=== PATIENT | male | born 1945 | race Hispanic/Latino ===

== ENCOUNTER → 2017-10-16 | Day surgery (SDC) | payer OTHER ==
[~2017-10-16] MED LIST: ASPIR 8181 MG PO; CALCIUM CARBON500 MG PO; FENTANYL CITRATE/PF 100MCG/2 ML INJ ONE; HYDROCHLOROTHIA25 MG PO; LIDOCAINE HCL 2% LOCAL INJ 5 ML SDV VIAL INJ ONE; LISINOPRIL10 MG PO; METHADONE HCL5 MG PO; MIDAZOLAM HCL 2 MG/2 ML VIAL ONE; PROPOFOL IV EMULSION 10 MG/ML 50 ML VIAL ONE
--- OUTSIDE RECORDS SUMMARY | 2017-10-16 09:09 | XMS REPORT ---
Author Organization Unknown Address [address] [place] [address] Phone [phone] Care Team Providers Care Key Account Executive Name Role Phone BRIANNA KAUFMAN MD 107 [phone] Allergies Code Code System Name Reaction Severity Status Onset NKDA Medications Name Status Start Date Stop Date aspirin 81 mg chewable tablet Chew 1 tablet every day by oral route. Active Not available baclofen 10 mg tablet Take 1 tablet every day by oral route for 90 days. Completed 07/16/2017 erythromycin 5 mg/gram (0.5 %) eye ointment APPLY 1 CM RIBBON on upper eyelid 3 TIMES PER DAY x 1 week Completed 04/05 ferrous sulfate 325 mg (65 mg iron) tablet Take 1 tablet every day by oral route for 90 days. Completed 07/16/2017 hydrochlorothiazide 25 mg tablet Take 1 tablet every day by oral route for 90 days. Active Not available Kenalog 40 mg/mL suspension for injection Take 1 mL by injection route. Active Not available lisinopril 40 mg tablet Take 1 tablet every day by oral route for 90 days. Active Not available meloxicam 15 mg tablet Take 1 tablet every day by oral route for 30 days. Active Not available meloxicam 7.5 mg tablet Take 1 tablet every day by oral route for 30 days. Completed 05/22/2017 rosuvastatin 5 mg tablet Take 1 tablet every day by oral route. 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 [address] [place] [address] (Work Place) 01/12/2016 Ultrasound, Abdominal Aorta Information not available 05/22/2017 Electrocardiogram [facility] [address] [facility] [address] [place] [id number] (Work Place) 09/25/2017 XR, Lumbar Spine [facility] [address] [place] [address] (Work Place) Notes: 11/17/2015: [id number]/01/2006 TRANSURETHRAL RESECTION OF PROSTATE-06/23/2014 Lab Results Date Name Specimen Result Interpretation Description Value Range Status Address 07/16/2017 Lipid Panel, Serum Normal Cholesterol, Total 164 mg/dL <200 mg/dL Final [facility]: [address] [place] [address] Normal HDL Cholesterol 78 mg/dL >40 mg/dL Final [facility]: [address] [place] [address] Normal Triglycerides 66 mg/dL <150 mg/dL Final [facility]: [address] [place] [address] Normal LDL-cholesterol 71 mg/dL (calc) Final [facility]: [address] [place] [address] Normal Chol/hdlc Ratio 2.1 (calc) <5.0 (calc) Final [facility]: [address] [place] [address] Normal Non HDL Cholesterol 86 mg/dL (calc) <130 mg/dL (calc) Final [facility]: [facility] [address] 07/16/2017 Hepatitis C Virus RNA, Quant, PCR, Serum or Plasma ABNORMAL Hepatitis C Antibody reactive non-reactive Final [facility]: [address] [place] [address] High Signal to Cut-off 32.30 <1.00 Final [facility]: [address] [place] [address] High HCV RNA, Quantitative Real Time PCR [id number] IU/mL not detected IU/mL Final [facility]: [address] [place] [address] High HCV RNA, Quantitative Real Time PCR 6.62 log IU/mL not detected log IU/mL Final [facility]: [address] [place] [address] Comment Final [facility]: [address] 07/16/2017 CBC W/ Auto Diff Normal White Blood Cell Count 6.9 thousand/uL 3.8-10.8 thousand/uL Final [facility]: [address] Low Red Blood Cell Count 3.94 million/uL 4.20-5.80 million/uL Final [facility]: [address] Low Hemoglobin 11.6 g/dL 13.2-17.1 g/dL Final [facility]: [address] Low Hematocrit 33.4 % 38.5-50.0 % Final [facility]: [address] Normal Mcv 84.8 fL 80.0-100.0 fL Final [facility]: [address] Normal Mch 29.4 pg 27.0-33.0 pg Final [facility]: [address] Normal Mchc 34.7 g/dL 32.0-36.0 g/dL Final [facility]: [address] Normal Rdw 13.3 % 11.0-15.0 % Final [facility]: [address] Low Platelet Count 138 thousand/uL 140-400 thousand/uL Final [facility]: [address] Normal Mpv 10.7 fL 7.5-12.5 fL Final [facility]: [address] Normal Absolute Neutrophils 4437 cells/uL 0980-6188 cells/uL Final [facility]: [address] Normal Absolute Lymphocytes 1697 cells/uL 850-3900 cells/uL Final [facility]: [address] Normal Absolute Monocytes 566 cells/uL 200-950 cells/uL Final [facility]: [address] [place] Normal Absolute Eosinophils 159 cells/uL 15-500 cells/uL Final [facility]: [address] [place] Normal Absolute Basophils 41 cells/uL 0-200 cells/uL Final [facility]: [address] [place] Normal Neutrophils 64.3 % Final [facility]: [address] [place] Normal Lymphocytes 24.6 % Final [facility]: [address], [place] Normal Monocytes 8.2 % Final [facility]: [address], [place] Normal Eosinophils 2.3 % Final [facility]: [address] [place] Normal Basophils 0.6 % Final [facility]: [address] [place] 07/16/2017 CMP, Serum or Plasma Normal Glucose 75 mg/dL 65-99 mg/ dL Final [facility]: [address] [facility] Normal Urea Nitrogen (BUN) 20 mg/dL 7-25 mg/dL Final [facility]: [address] [facility] Normal Creatinine 0.78 mg/dL 0.70-1.18 mg/dL Final [facility]: [address] [place] [address] Normal eGFR Non-afr. Argentine 91 mL/min/1.73m2 > or=60 mL/min/ 1.73m2 Final [facility]: [address] [facility] Normal eGFR 105 mL/min/1.73m2 > or=60 mL/min/ 1.73m2 Final [facility]: [address] [facility] BUN/creatinine Ratio not applicable (calc) 6-22 (calc) Final [facility]: [address] [facility] Normal Sodium 135 mmol/L 135-146 mmol/L Final [facility]: [address] [facility] Normal Potassium 4.2 mmol/L 3.5-5.3 mmol/L Final [facility]: [address] [facility] Normal Chloride 101 mmol/L 98-110 mmol/L Final [facility]: [address] [facility] Normal Carbon Dioxide 28 mmol/L 20-31 mmol/L Final [facility]: [address] [facility] Normal Calcium 8.9 mg/dL 8.6-10.3 mg/dL Final [facility]: [address] [facility] Normal Protein, Total 7.4 g/dL 6.1-8.1 g/dL Final [facility]: [address] [place] Low Albumin 3.5 g/dL 3.6-5.1 g/dL Final [facility]: [address] [place] High Globulin 3.9 g/dL (calc) 1.9-3.7 g/dL (calc) Final [facility]: [address] [place] Low Albumin/globulin Ratio 0.9 (calc) 1.0-2.5 (calc) Final [facility]: [address] [facility] Normal Bilirubin, Total 0.8 mg/dL 0.2-1.2 mg/dL Final [facility]: [address] [place] High Alkaline Phosphatase 166 U/L 40-115 U/L Final [facility]: [address] [place] High Ast 83 U/L 10-35 U/L Final [facility]: [address] [place] High Alt 80 U/L 9-46 U/L Final [facility]: [address] [facility] 05/14/2017 Fecal Occult Blood, Stool ABNORMAL Fecal Globin by Immunochemistry see note Final [facility]: [address] [facility] 02/20/2017 CBC W/ Auto Diff Normal White Blood Cell Count 5.4 thousand/uL 3.8-10.8 thousand/uL Final [facility]: [address] [place] Low Red Blood Cell Count 3.68 million/uL 4.20-5.80 million/uL Final [facility]: [address] [place] Low Hemoglobin 11.0 g/dL 13.2-17.1 g/dL Final [facility]: [address] [place] Low Hematocrit 32.3 % 38.5-50.0 % Final [facility]: [address] [facility] Normal Mcv 87.8 fL 80.0-100.0 fL Final [facility]: [address] [facility] Normal Mch 29.9 pg 27.0-33.0 pg Final [facility]: [address] [facility] Normal Mchc 34.1 g/dL 32.0-36.0 g/dL Final [facility]: [address] White Normal Rdw 13.1 % 11.0-15.0 % Final [facility]: [address] [place] Low Platelet Count 104 thousand/uL 140-400 thousand/uL Final [facility]: [address] [place] Normal Mpv 10.0 fL 7.5-12.5 fL Final [facility]: [address] [place] Normal Absolute Neutrophils 3742 cells/uL 2677-5391 cells/uL Final [facility]: [address] [place] Normal Absolute Lymphocytes 1274 cells/uL 850-3900 cells/uL Final [facility]: [address] [place] Normal Absolute Monocytes 329 cells/uL 200-950 cells/uL Final [facility]: [address] [place] Normal Absolute Eosinophils 32 cells/uL 15-500 cells/uL Final [facility]: [address] [place] Normal Absolute Basophils 22 cells/uL 0-200 cells/uL Final [facility]: [address] [place] Normal Neutrophils 69.3 % Final [facility]: [address] [place] Normal Lymphocytes 23.6 % Final [facility]: [address] [place] Normal Monocytes 6.1 % Final [facility]: [address] [place] Normal Eosinophils 0.6 % Final [facility]: [address] [place] Normal Basophils 0.4 % Final [facility]: [address] [place] 02/20/2017 Lipid Panel, Serum Normal Cholesterol, Total 140 mg/dL <200 mg/dL Final [facility]: [address] [place] Normal HDL Cholesterol 70 mg/dL >40 mg/dL Final [facility]: [address] [place] Normal Triglycerides 58 mg/dL <150 mg/dL Final [facility]: [address] [facility] Normal LDL-cholesterol 57 mg/dL (calc) Final [facility]: [address] [facility] Normal Chol/hdlc Ratio 2.0 (calc) <5.0 (calc) Final [facility]: [address] Normal Non HDL Cholesterol 70 mg/dL (calc) <130 mg/dL (calc) Final [facility]: [address] [facility] 02/20/2017 CMP, Serum or Plasma Normal Glucose 72 mg/dL 65-99 mg/ dL Final [facility]: [address] javier [address] Normal Urea Nitrogen (BUN) 18 mg/dL 7-25 mg/dL Final [facility]: [address] Normal Creatinine 0.88 mg/dL 0.70-1.18 mg/dL Final [facility]: [address] Normal eGFR Non-afr. [place] 86 mL/min/1.73m2 > or=60 mL/min/ 1.73m2 Final [facility]: [address] javier [address] Normal eGFR 100 mL/min/1.73m2 > or=60 mL/min/ 1.73m2 Final [facility]: [address] BUN/creatinine Ratio not applicable (calc) 6-22 (calc) Final [facility]: [address] Normal Sodium 136 mmol/L 135-146 mmol/L Final [facility]: [address] Normal Potassium 4.3 mmol/L 3.5-5.3 mmol/L Final [facility]: [address] Normal Chloride 103 mmol/L 98-110 mmol/L Final [facility]: [address] Normal Carbon Dioxide 30 mmol/L 20-31 mmol/L Final [facility]: [address] Normal Calcium 8.8 mg/dL 8.6-10.3 mg/dL Final [facility]: [address] Normal Protein, Total 6.9 g/dL 6.1-8.1 g/dL Final [facility]: [address] Low Albumin 3.4 g/dL 3.6-5.1 g/dL Final [facility]: [address] Normal Globulin 3.5 g/dL (calc) 1.9-3.7 g/dL (calc) Final [facility]: [address] Normal Albumin/globulin Ratio 1.0 (calc) 1.0-2.5 (calc) Final [facility]: [address] Normal Bilirubin, Total 0.9 mg/dL 0.2-1.2 mg/dL Final [facility]: [address] [place] [address], [place] Normal Alkaline Phosphatase 114 U/L 40-115 U/L Final [facility]: [address] High Ast 56 U/L 10-35 U/L Final [facility]: [address] [place] [address], [place] High Alt 50 U/L 9-46 U/L Final [facility]: [address] jav[address] 07/27/2016 Lipid Panel, Serum Normal Cholesterol, Total 168 mg/dL 125-200 mg/dL Final [facility]: [address], [place] Normal HDL Cholesterol 79 mg/dL > or=40 mg/dL Final [facility]: [address] [facility], [place] Normal Triglycerides 79 mg/dL <150 mg/dL Final [facility]: [address], [place] Normal LDL-cholesterol 73 mg/dL (calc) <130 mg/dL (calc) Final [facility]: [address], [place] Normal Chol/hdlc Ratio 2.1 (calc) < or=5.0 (calc) Final [facility]: [address], [place] Normal Non HDL Cholesterol 89 mg/dL (calc) Final [facility]: [address], [place] 07/27/2016 CMP, Serum or Plasma Normal Glucose 94 mg/dL 65-99 mg/ dL Final [facility]: [address], [place] Normal Urea Nitrogen (BUN) 12 mg/dL 7-25 mg/dL Final [facility]: [address], [place] Normal Creatinine 0.85 mg/dL 0.70-1.18 mg/dL Final [facility]: [address], [place] Normal eGFR Non-afr. Argentine 88 mL/min/1.73m2 > or=60 mL/min/ 1.73m2 Final [facility]: [address], [place] Normal eGFR 102 mL/min/1.73m2 > or=60 mL/min/ 1.73m2 Final [facility] [place] BUN/creatinine Ratio not applicable (calc) 6-22 (calc) Final [facility]: [address], [place] Normal Sodium 135 mmol/L 135-146 mmol/L Final [facility]: [address] [facility], [place] Normal Potassium 4.1 mmol/L 3.5-5.3 mmol/L Final [facility]: [address] [facility], [place] Normal Chloride 101 mmol/L 98-110 mmol/L Final [facility]: [address] [place] [address], [place] Normal Carbon Dioxide 28 mmol/L 20-31 mmol/L Final [facility]: [address] [facility], [place] Normal Calcium 9.0 mg/dL 8.6-10.3 mg/dL Final [facility]: [address] [facility], [place] Normal Protein, Total 7.2 g/dL 6.1-8.1 g/dL Final [facility]: [address], [place] Normal Albumin 3.6 g/dL 3.6-5.1 g/dL Final [facility]: [address] [facility] [place] Normal Globulin 3.6 g/dL (calc) 1.9-3.7 g/dL (calc) Final [facility]: [address] [facility], [place] Normal Albumin/globulin Ratio 1.0 (calc) 1.0-2.5 (calc) Final [facility]: [address] [facility], [place] Normal Bilirubin, Total 0.7 mg/dL 0.2-1.2 mg/dL Final [facility]: [address] [facility], [place] High Alkaline Phosphatase 183 U/L 40-115 U/L Final [facility]: [address] [facility], [place] High Ast 81 U/L 10-35 U/L Final [facility]: [address], [place] High Alt 81 U/L 9-46 U/L Final [facility]: [address], [place] 07/27/2016 CBC W/ Auto Diff Normal White Blood Cell Count 4.7 thousand/uL 3.8-10.8 thousand/uL Final [facility]: [address] [facility], [place] Low Red Blood Cell Count 3.97 million/uL 4.20-5.80 million/uL Final [facility]: [address], [place] Low Hemoglobin 11.8 g/dL 13.2-17.1 g/dL Final [facility]: [address] [facility], [place] Low Hematocrit 35.0 % 38.5-50.0 % Final [facility]: [address] [facility], [place] Normal Mcv 88.0 fL 80.0-100.0 fL Final [facility]: [address] [facility], [place] Normal Mch 29.6 pg 27.0-33.0 pg Final [facility]: [address] [facility], [place] Normal Mchc 33.7 g/dL 32.0-36.0 g/dL Final [facility]: [address] [facility] [place] Normal Rdw 14.5 % 11.0-15.0 % Final [facility]: [address] [facility] [place] Low Platelet Count 129 thousand/uL 140-400 thousand/uL Final [facility]: [address] [facility], [place] Normal Mpv 8.6 fL 7.5-12.5 fL Final [facility]: [address], [place] Normal Absolute Neutrophils 2966 cells/uL 1343-7624 cells/uL Final [facility]: [address] [facility], [place] Normal Absolute Lymphocytes 1269 cells/uL 850-3900 cells/uL Final [facility]: [address] [facility], [place] Normal Absolute Monocytes 348 cells/uL 200-950 cells/uL Final [facility]: [address] [facility], [place] Normal Absolute Eosinophils 103 cells/uL 15-500 cells/uL Final [facility]: [address] [facility] [place] Normal Absolute Basophils 14 cells/uL 0-200 cells/uL Final [facility]: [address] [place] [address], [place] Normal Neutrophils 63.1 % Final [facility]: [address] [place] [address], [place] Normal Lymphocytes 27.0 % Final [facility]: [address] [place] [address], [place] Normal Monocytes 7.4 % Final [facility]: [address] [place] [address], [place] Normal Eosinophils 2.2 % Final [place] [facility]: [address] [place] [address], [place] Normal Basophils 0.3 % Final [facility]: [address] [place] [address], [place] 07/27/2016 T4, Total, Serum Normal T4 (Thyroxine), Total 7.9 mcg/ dL 4.5-12.0 mcg/dL Final [facility]: [address] [place] [address], Jhonny 07/27/2016 TSH, Serum or Plasma Normal Tsh 2.34 mIU/L 0.40-4.50 mIU/L Final [facility]: [address] [place] [address], Jhonny 07/27/2016 PSA, Serum or Plasma Normal PSA, Total 0.4 NG/mL < or= 4.0 NG/mL Final [facility]: [address] [place] [address], [place] Lipid Panel, Serum Normal Cholesterol, Total 148 mg/dL 125-200 mg/dL Final [facility]: [address] [place] [address], [place] Normal HDL Cholesterol 73 mg/dL > or=40 mg/dL Final [facility]: [address] [place] [address], [place] Normal Triglycerides 54 mg/dL <150 mg/dL Final [facility]: [address] [place] [address], [place] Normal LDL-cholesterol 64 mg/dL (calc) <130 mg/dL (calc) Final [facility]: [address] [place] [address], [place] Normal Chol/hdlc Ratio 2.0 (calc) < or=5.0 (calc) Final [facility]: [address] [place] [address], [place] Normal Non HDL Cholesterol 75 mg/dL (calc) Final [facility]: [address] [place] [address], [place] CMP, Serum or Plasma Normal Glucose 73 mg/dL 65-99 mg/dL Final [facility]: [address] [place] [address], [place] Normal Urea Nitrogen (BUN) 14 mg/dL 7-25 mg/dL Final [facility]: [address], [place] Normal Creatinine 0.84 mg/dL 0.70-1.18 mg/dL Final [facility]: [address], [place] Normal eGFR Non-afr. [place] 89 mL/min/1.73m2 > or=60 mL/min/ 1.73m2 Final [facility]: [address], [place] Normal eGFR 103 mL/min/1.73m2 > or=60 mL/min/ 1.73m2 Final [facility]: [address], [place] BUN/creatinine Ratio not applicable (calc) 6-22 (calc) Final [facility]: [address], [place] Low Sodium 134 mmol/L 135-146 mmol/L Final [facility]: [address], [place] Normal Potassium 4.3 mmol/L 3.5-5.3 mmol/L Final [facility]: [address], [place] Normal Chloride 100 mmol/L 98-110 mmol/L Final [facility]: [address], [place] Normal Carbon Dioxide 29 mmol/L 20-31 mmol/L [facility]: [address], [place] Normal Calcium 9.1 mg/dL 8.6-10.3 mg/dL [facility]: [address], [place] Normal Protein, Total 7.2 g/dL 6.1-8.1 g/dL Final [facility]: [address], [place] Normal Albumin 3.6 g/dL 3.6-5.1 g/dL Final [facility]: [address], [place] Normal Globulin 3.6 g/dL (calc) 1.9-3.7 g/dL (calc) Final [facility]: [address], [place] Normal Albumin/globulin Ratio 1.0 (calc) 1.0-2.5 (calc) [facility]: [address], [place] Normal Bilirubin, Total 0.8 mg/dL 0.2-1.2 mg/dL [facility]: [address], [place] High Alkaline Phosphatase 154 U/L 40-115 U/L Final [facility]: [address], [place] High Ast 80 U/L 10-35 U/L Final [facility]: [address], [place] High Alt 85 U/L 9-46 U/L Final [facility]: [address], [place] Electrocardiogram No observation recorded. [facility]: [address] Spirometry Spirometry [facility]: [address] [address], [place] Past Encounters 09/25/2017 Low Back Pain; Viral Hepatitis C; Hypertensive Disorder INGRIS Frazier: [address] [place] [phone], Ph. 07/16/2017 Chronic Obstructive Lung Disease; Essential Hypertension; Pain in Right Knee; Opioid Dependence in Remission; Hypercholesterolemia; Viral Screening; Primary Open Angle Glaucoma; Lightheadedness LUPILLO Ramos: [address] [place] [phone], Ph. [phone] 05/22/2017 Essential Hypertension; Dizziness LUPILLO Ramos: [address] [place] [phone], Ph. 04/05/2017 Hypertensive Disorder; Pain in Right Knee; Opioid Dependence in Remission LUPILLO Ramos: [id number] [place] [phone], Ph. [phone] 02/20/2017 Neck Pain; Essential Hypertension; Cervical Spondylosis; Immunization; Pain in Right Knee LUPILLO Ramos: [address] [address], Ph. 11/14/2016 Hordeolum Externum of Upper Eyelid INGRIS Reina: [address] [phone], Ph. 07/27/2016 Adult Health Examination; Body Mass Index 20-24 - Normal; Essential Hypertension ; Chronic Obstructive Lung Disease; Nicotine Dependence; Hypercholesterolemia; Neck Pain; Advance Directive Discussed with Patient; Immunization; Screening for Malignant Neoplasm of Prostate Salima AlarconANDREAP: [id number] [facility], [address], [place] [address], Ph. [phone] 06/27/2016 [employer] [place] [place]: [address] [facility], [facility] [address], [place] [address], Ph. 05/23/2016 Neck Pain Salima AlarconANDREAP: [address] [facility], [address], [place] [address], Ph. 04/26/2016 Neck Pain; Essential Hypertension; Hypercholesterolemia; Nicotine Dependence Salima AlarconANDREAP: [address] [facility], [facility] [address], [place] [address], Ph. Social History Smoking Status Heavy Tobacco Smoker (1/2 PPD) Vaccine List Vaccine Type influenza, high dose seasonal 02/29/2016 02/20/20170.5 mL pneumococcal conjugate PCV 13 07/27/20160.5 mL Plan of Care Patient Instructions It was good to see you in the office today for your Medicare Annual Wellness Visit. You have been provided some information on healthy nutrition, including a diet rich in fruits and vegetables, minimizing simple carbohydrates, salt, and saturated fats. I want to encourage regular cardiovascular exercise such as walking at least 30 minutes daily, 5 times per week. Please remember to schedule any preventive health measures that we talked about today. You have also been provided education on fall prevention and community- based lifestyle interventions to help reduce health risks and promote healthy living in your [employer] folder. Reminders Provider Appointments None recorded. Lab None recorded. Referral None recorded. Procedures None recorded. Surgeries None recorded. Imaging None recorded. Vitals 09/25/2017 02:30PM Est Patient Height Weight BMI Blood Pressure 5 ft 4 in 131.3 lbs 22.5 kg/m2 139/77 mm[Hg] 07/16/2017 02:45PM Est Patient Height Weight BMI Blood Pressure 5 ft 4 in 132.2 lbs 22.7 kg/m2 132/65 mm[Hg] 05/22/2017 11:15AM Est Patient Height Weight BMI Blood Pressure 5 ft 4 in 134.2 lbs 23 kg/m2 (1) 156/86 mm[Hg] (2) 148/83 mm[Hg] 04/05/2017 08:15AM Est Patient Height Weight BMI Blood Pressure 5 ft 4 in 132.6 lbs 22.8 kg/m2 135/75 mm[Hg] 02/20/2017 11:00AM Est Patient Height Weight BMI Blood Pressure 5 ft 4 in 129 lbs 22.1 kg/m2 120/67 mm[Hg] 11/14/2016 08:30AM Est Patient Height Weight BMI Blood Pressure 5 ft 4 in 133 lbs 22.8 kg/m2 123/70 mm[Hg] 07/27/2016 10:00AM [employer] TE[employer]BER/EST CPX Height Weight BMI Blood Pressure 5 ft 4 in 137 lbs 23.5 kg/m2 138/76 mm[Hg] 06/27/2016 02:30PM Est Patient Height Weight BMI Blood Pressure 5 ft 4 in 138 lbs 23.7 kg/m2 132/76 mm[Hg] 05/23/2016 11:00AM Work In Same Day Height Weight BMI Blood Pressure 5 ft 4 in 141 lbs 24.2 kg/m2 130/71 mm[Hg] 04/26/2016 09:15AM Est Patient Height Weight BMI Blood Pressure 5 ft 4 in 140.6 lbs 24.1 kg/m2 122/71 mm[Hg] 11/17/2015 Height Weight BMI Blood Pressure 5 ft 4 in 145.4 lbs 24.96 kg/m2 123/73 mm[Hg]
--- OUTSIDE RECORDS SUMMARY | 2017-10-16 09:09 | XMS REPORT ---
Author Author [facility] Address Unknown Phone Unavailable Care Team Providers Care Chemical Project Engineer Name Role Phone [place], TREATMENT Unavailable Unavailable Problems This patient has no known problems. Allergies, Adverse Reactions, Alerts This patient has no known allergies or adverse reactions. Medications This patient has no known medications. Results Test Description Test Time Test Comments Text Results Atomic Results Result Comments RPR, Qual 2016-11-28 21:06:00 RPR (test code=RPR) Non-Reactive Non-Reactive Urinalysis [id number] 16:42:00* Test Item Value Reference Range Comments Color (test code=COLOR) Yellow Yellow,Straw,Pl yellow Clarity (test code=CLAR) Clear Clear Specific [place] (test code=SPGR) 1.020 1.001-1.035 pH (test code=PH) 6.5 5.0-9.0 Ketone (test code=KET) 5 mg/dL Negative Glucose (test code=GLUCUR) Negative mg/dL Negative Protein (test code=PROT) Negative mg/dL Negative Bilirubin (test code=BILI) See IctoTest mg/dL Negative Occult Blood (test code=UDOB) Negative Negative Urobilinogen (test code=UROB) 4.0 mg/dL 0.2-1.0 Nitrite (test code=NIT) Negative Negative Leuk Esterase (test code=LEUK) Negative Negative Ictotest (test code=ICTOTEST) Confirmed Negative Negative,Confirmed Negative Micros Exam (test code=MEXAM) Indicated Epithelial Cells (test code=EPI) 3-5 /LPF 0-30 WBC, Urine (test code=UWBC) 0-5 /HPF 0-5 RBC, Urine (test code=URBC) 0-3 /HPF 0-5 Bacteria (test code=BACT) Few /HPF Hepatic Function [id number] 16:39:00* Test Item Value Reference Range Comments Prot Total (test code=TP) 7.3 g/dL 6.4-8.3 Albumin (test code=ALB) 3.7 g/dL 3.5-5.2 A/G Ratio (test code=AGRATIO) 1.0 Ratio Globulin (test code=GLOB) 3.6 2.9-3.1 Bili Total (test code=TBIL) 0.7 mg/dL 0.1-0.9 Bili Direct (test code=DBIL) 0.2 mg/dL 0.0-0.3 Bili Indirect (test code=IBIL) 0.5 Alk Phos (test code=APHOS) 165 U/L 40-129 AST (test code=AST) 118 U/L 1-40 ALT (test code=ALT) 82 U/L 1-41 CBC with [id number] 15:57:00* Test Item Value Reference Range Comments WBC (test code=WBC) 5.6 K/cumm 4.4-10.5 RBC (test code=RBC) 3.83 M/cumm 4.10-5.70 Hemoglobin (test code=HGB) 11.4 gm/dL 13.4-17.4 Hematocrit (test code=HCT) 34.3 % 38.7-52.0 MCV (test code=MCV) 89.6 fL 80-100 MCH (test code=MCH) 29.8 pg 27.0-32.5 MCHC (test code=MCHC) 33.3 g/dL 32.0-37.5 RDW (test code=RDW) 14.4 % 11.5-14.5 Platelet Count (test code=PLTCT) 126 K/cumm 140-440 MPV (test code=MPV) 8.7 fL Diff Method (test code=DIFFM) Auto Neutrophil (test code=NEUT) 58.1 % 36-70 Lymphocyte (test code=LYMPH) 28.0 % 12-44 Monocyte (test code=MONO) 11.6 % 0-11 Eosinophil (test code=EOS) 1.9 % 0-7 Basophil (test code=BASO) 0.4 % 0-2 Neutro Abs (test code=ANEUT) 3.3 K/cumm 1.6-7.4 Lymph Abs (test code=ALYMPH) 1.6 K/cumm 0.5-4.6 [place] Abs (test code=AMONO) 0.7 K/cumm 0.0-1.2 Eos Abs (test code=AEOS) 0.10 K/cumm 0.00-0.74 Baso Abs (test code=ABASO) 0.0 K/cumm 0.00-0.21
== END | disposition home or self-care (01) ==
LOC: OR 09:07
PROVIDERS: ATTEND Internal Medicine Gastroenterology
DX: K74.60 Unspecified cirrhosis of liver (principal); I85.10 Secondary esophageal varices without bleeding; K29.50 Unspecified chronic gastritis without bleeding; K44.9 Diaphragmatic hernia without obstruction or gangrene; B19.20 Unspecified viral hepatitis C without hepatic coma; D64.9 Anemia, unspecified; I10 Essential (primary) hypertension; M19.90 Unspecified osteoarthritis, unspecified site; F17.210 Nicotine dependence, cigarettes, uncomplicated; Z01.810 Encounter for preprocedural cardiovascular examination; Z79.82 Long term (current) use of aspirin
CPT/HCPCS: 43239; 93005; J2001; J2250